=== PATIENT | male | born 1965 ===

== ENCOUNTER → 2022-12-24 | Outpatient (CLI) | payer OTHER ==
--- NOTE | 2022-12-26 07:19 | MR ---
EXAMINATION TYPE: MR Prostate wo/w con DATE OF EXAM: 12/24/2022 9:05 AM COMPARISON: None. CLINICAL INDICATION:Male, 57 years old with history of R97.20; Elevated PSA. TECHNIQUE: Multi-planar, multi-sequence imaging of the pelvis is performed prior to and following the uncomplicated administration of bolus intravenous gadolinium. CONTRAST: 10 Gadavist Interpretive Criteria: PI-RADS v2.1 SERUM PSA: 17.0 on 10/25/2022. 16.9 before that, no date on document. SURGICAL PATHOLOGY: Negative biopsy on 07/19/2022. FINDINGS: Prostatic dimensions: 5.9 x 6.6 x 5.4 cm. Ellipsoid Volume:110.10 (PSA density=0.15 ng/mL/mL) CENTRAL GLAND (Central and Transition Zones/CZ+TZ): Multiple bilateral, heterogenous appearing hypertrophic stromal nodules, without suspicious lesion. M edian lobe hypertrophy with protrusion into the base of the bladder. (PI-RADS 2) PERIPHERAL ZONE (PZ): Bilateral linear, indistinct wedgelike areas of low ADC, and low T2 signal, No evidence of masslike a bnormality, or localized perfusional hypervascularity, to further suggest a focus of clinically signi ficant prostate cancer. (PI-RADS 2) SEMINAL VESICLES (SV): Symmetric and unremarkable. PERIPROSTATIC TISSUES: Unremarkable. LYMPH NODES: Prominent 10 mm in short axis lymph node on the left external iliac chain and 7 mm on the right measu red in short axis. REMAINING PELVIS: Bladder wall is within normal limits given distention. No abnormal free or organized intrapelvic fluid collection. No pathologic bowel dilation or mural thickening. No hernia visualized OSSEOUS STRUCTURES: No suspicious osseous abnormality. IMPRESSION: 1. No specific features for high-risk prostate cancer. Maximum PI-RADS score: 2. 2. Substantial BPH, estimated gland volume 110.10 mL. 3. No suspicious osseous lesion. No lymphadenopathy.
== END | disposition home or self-care (01) ==
LOC: RADMRIMAIN 07:51
PROVIDERS: ATTEND Urology
DX: N40.0 Benign prostatic hyperplasia without lower urinary tract symptoms (principal); R97.20 Elevated prostate specific antigen [PSA]
CPT/HCPCS: 72197; A9585